=== PATIENT | male | born 1955 | race Caucasian/White ===

== ENCOUNTER 2017-03-11 11:23 | Outpatient (CLI) | payer OTHER ==
[2017-03-11 11:53] LABS: CREATININE 1.2 mg/dL (0.6-1.2)
[2017-03-11] MEDS ORDERED: IOPAMIDOL-300 100 ML VIAL IVP ONE (13:21)
--- NOTE | 2017-03-11 17:27 | CT Report ---
CT NECK WITH CONTRAST: 03/11/2017 CLINICAL INDICATION: Neck pain, right ear pain. Axial CT images of the neck were obtained with 80 mL Isovue-300 intravenously. In accordance with CT protocol optimization, one or more of the following dose reduction techniques w ere utilized for this exam: automated exposure control, adjustment of mA and/or KV based on patient size, or use of iterative reconstructive technique. No previous CT is available for comparison. Limited evaluation of the orbits and paranasal sinuses are unremarkable. The mastoid air cells and m iddle ear contents are unremarkable. The vascular structures enhance normally. There is no evidence of cervical lymphadenopathy. The nasopharynx, oropharynx, and hypopharynx appear unremarkable. The trachea is widely patent. The salivary glands and thyroid gland appear unremarkable. Limited evalu ation of the lung apices is unremarkable. Osseous structures demonstrate degenerative changes. IMPRESSION: NO EVIDENCE OF MASTOIDITIS. NO APPARENT MIDDLE EAR ABNORMALITY. NORMAL CT OF THE NECK WITH CONTRAST. JOB #: [id number] EXT JOB #:[id number]
== END 2017-03-11 11:24 | disposition home or self-care (01) ==
LOC: LAB 11:23
PROVIDERS: ATTEND Otolaryngology
DX: M54.2 Cervicalgia (principal)
CPT/HCPCS: 36415; 70491; 82565; 84520; Q9967

== ENCOUNTER 2023-07-12 08:00 | Outpatient (CLI) | payer BC, MEDICARE, OTHER | END 2023-07-12 23:59 | disposition home or self-care (01) | LOC: LAB.S 08:00 | PROVIDERS: ATTEND Physician Assistant Medical | DX: N20.9 Urinary calculus, unspecified (principal) | CPT/HCPCS: 87086 ==